=== PATIENT | female | born 1965 | race Caucasian/White ===

== ENCOUNTER 2021-06-13 10:43 | Outpatient (CLI) | payer MEDICAID, SELFPAY ==
--- NOTE | 2021-06-13 10:56 | USCV_ITS ---
Sharri Jefferson Age: 56 Gender: F : 1965 Exam Date: 06/13/2021 11:07 Ordering Phys: Jen Rodriguez WELDER Technologist: Manpreet Babcock [place] [facility] [place]: PAIN AND SWELLING PROCEDURES: Venous duplex imaging was performed in only the left lower extremity. The following venous structures were evaluated: common femoral vein, profunda vein, proximal portion of the greater saphenous vein, superficial femoral vein, and the popliteal vein. In addition, the posterior tibial and peroneal trunk were evaluated. Serial compression, augmentation maneuvers, and spectral Doppler flow evaluation were performed. FINDINGS: Normal 2-D Doppler and augmentation and compressibility throughout the lower extremity venous structures. Additional imaging through the proximal calf veins also reveals no thrombus. Limited evaluation of the greater saphenous vein is patent with no thrombus. Left inferomedial knee there is a superficial hyperechoic area noted without bloodflow. Likely a small lipoma measuring 1.0 cm. CONCLUSIONS No DVT left lower extremity. Dr. Aliyah Estes DO (Electronically Signed) Final Date: 13 June 2021 12:48 S
== END 2021-06-13 10:44 | disposition home or self-care (01) ==
LOC: RAD 10:48
PROVIDERS: PCP Nurse Practitioner Family; Visit Provider Nurse Practitioner Family
DX: M79.662 Pain in left lower leg (principal); M79.89 Other specified soft tissue disorders
CPT/HCPCS: 93971

== ENCOUNTER 2022-06-16 10:24 | Outpatient (CLI) | payer MEDICAID, SELFPAY ==
--- NOTE | 2022-06-16 10:42 | XR_ITS ---
WS: [id number] Left ankle, 3 views, 06/16/2022 Clinical Data: PAIN IN LEFT ANKLE JOINTS OF LEFT FOOT Comparison: Left ankle, 02/23/2006. Findings: No fractures or dislocations are seen. The ankle mortise is normal. The talus and calcaneus are unrem arkable. No soft tissue swelling over the medial or lateral malleolus is seen. There is an Achilles spur and a plantar spur. XR/XR ankle LT min 3V* [id number] Impression: Negative left ankle.
== END 2022-06-16 10:25 | disposition home or self-care (01) ==
PROVIDERS: PCP Nurse Practitioner Family; Visit Provider Nurse Practitioner Family
DX: M25.572 Pain in left ankle and joints of left foot; S86.002A Unspecified injury of left Achilles tendon, initial encounter; X58.XXXA Exposure to other specified factors, initial encounter
CPT/HCPCS: 73610

== ENCOUNTER 2022-06-28 10:33 | Outpatient (CLI) | payer MEDICAID, SELFPAY | END 2022-06-28 10:34 | disposition home or self-care (01) | LOC: SPT 10:33 | PROVIDERS: PCP Nurse Practitioner Family; Visit Provider Podiatrist Foot & Ankle Surgery | DX: Z46.89 Encounter for fitting and adjustment of other specified devices (principal); M76.62 Achilles tendinitis, left leg | CPT/HCPCS: 97760; 99204; L4397 ==

== ENCOUNTER 2022-07-13 08:19 | Outpatient (CLI) | payer MEDICAID, SELFPAY ==
--- NOTE | 2022-07-13 08:28 | MR_ITS ---
WS: [email or web address] EXAMINATION: MR ankle LT wo con* [id number] ORDER DATE: 07/13/2022 8:33 AM COMPARISON: None. HISTORY: UNSPECIFIED INJURY/ACHILLES TENDON CONTRAST: None. TECHNIQUE: Axial proton density fat sat, axial T1, sagittal proton density, sagittal STIR, coronal T2 fat sat, and coronal T1 sequences performed. After contrast, axial T1 fat sat, coronal T1 fat sat, and sagittal T1 fat sat were performed. FINDINGS: Prominent plantar and Achilles calcaneal spurring unchanged from the prior radiograph. Normal medial and lateral malleolus. No avulsion fractures. Normal talar dome. No evidence of avascular necrosis. Deltoid ligament is normal in appearance. Normal ATF and PTF. Base of the 5th metatarsal is normal. N ormal cuboid. Normal cuneiforms. Normal talonavicular articulation. Mild subcutaneous edema hindfoot and midfoot. Normal plantar aponeurosis. Normal bone marrow signal in the calcaneus. Normal talar nec k. Distal Achilles is normal in appearance. No high-grade Achilles tendon tears. Mild thickening of the Achilles tendon distally with a small amount of peritendinous edema. Prominent dorsal calcaneal spurr ing/enthesophyte measuring 8 mm. Trace fluid in the retrocalcaneal bursa. Normal peroneal tendon sheath. Normal tibialis posterior. Small amount of tenosynovitis along the fle xor hallucis longus. Normal tibialis anterior. Normal extensor compartment tendons. Small ankle effus ion. MR/MR ankle LT wo con* [id number] IMPRESSION: 1. Achilles is intact. Mild thickening of the distal Achilles tendon with trac e retrocalcaneal fluid. Small amount of edema about the Achilles tendon compati ble with peritendinitis. 2. Prominent dorsal Achilles calcaneal spurring/enthesophyte measuring 8 mm. 3. Normal ankle mortise. Normal medial and lateral malleolus. No acute avulsio n fractures. 4. Normal ATF and deltoid ligament.
== END 2022-07-13 08:20 | disposition home or self-care (01) ==
PROVIDERS: PCP Nurse Practitioner Family; Visit Provider Nurse Practitioner Family
DX: S86.002A Unspecified injury of left Achilles tendon, initial encounter (principal); X58.XXXA Exposure to other specified factors, initial encounter
CPT/HCPCS: 73721

== ENCOUNTER → 2022-07-18 12:54 | Outpatient (BNVA) | payer MEDICAID, SELFPAY | PROVIDERS: PCP Nurse Practitioner Family; Visit Provider Podiatrist Foot & Ankle Surgery | DX: M76.62 Achilles tendinitis, left leg (principal); M77.32 Calcaneal spur, left foot; M19.072 Primary osteoarthritis, left ankle and foot | CPT/HCPCS: 99213 ==

== ENCOUNTER → 2022-07-28 08:29 | Outpatient (BNVA) | payer MEDICAID, SELFPAY | PROVIDERS: PCP Nurse Practitioner Family; Visit Provider Podiatrist Foot & Ankle Surgery | DX: M76.62 Achilles tendinitis, left leg (principal); M77.32 Calcaneal spur, left foot; M19.072 Primary osteoarthritis, left ankle and foot | CPT/HCPCS: 99213 ==

== ENCOUNTER 2022-08-31 09:51 | Outpatient (CLI) | payer MEDICAID, SELFPAY ==
--- NOTE | 2022-08-31 10:05 | XR_ITS ---
WS: [id number] Right knee, AP and lateral views, 08/31/2022 Clinical Data: PAIN IN RIGHT KNEE Comparison: AP both knees, 08/29/2018 Findings: No fractures or dislocations are seen. The joint spaces are normal. The patella is intact. The soft t issues are unremarkable. XR/XR knee RT 1-2V [id number] Impression: Negative right knee. Kellgren-Nas Classification: grade 0 (none): definite absence of x-ray nava nges of osteoarthritis
== END 2022-08-31 09:52 | disposition home or self-care (01) ==
LOC: RAD 09:54
PROVIDERS: PCP Nurse Practitioner Family; Visit Provider Nurse Practitioner Family
DX: M25.561 Pain in right knee (principal)
CPT/HCPCS: 73560

== ENCOUNTER 2022-11-16 14:25 | Outpatient (CLI) | payer MEDICAID, SELFPAY ==
--- NOTE | 2022-11-16 14:34 | US_ITS ---
WS: [id number] ULTRASOUND SOFT TISSUES posterior RIGHT knee. HISTORY: PAIN IN RIGHT KNEE COMPARISON: None available. TECHNIQUE: 2-D and color Doppler imaging is submitted. No soft tissue abnormalities are identified posterior to the RIGHT knee. No fluid collection or Lemon 's cyst. US/US soft tissue/extremity [id number] IMPRESSION: No soft tissue abnormality posterior to the RIGHT knee. For further evaluation consider MRI.
== END 2022-11-16 14:26 | disposition home or self-care (01) ==
PROVIDERS: PCP Nurse Practitioner Family; Visit Provider Nurse Practitioner Family
DX: M25.561 Pain in right knee (principal)
CPT/HCPCS: 76882

== ENCOUNTER → 2023-03-27 10:10 | Outpatient (BNVA) | payer MEDICAID, SELFPAY | PROVIDERS: PCP Nurse Practitioner Family; Visit Provider Podiatrist Foot & Ankle Surgery | DX: M76.62 Achilles tendinitis, left leg; M77.32 Calcaneal spur, left foot; M19.072 Primary osteoarthritis, left ankle and foot | CPT/HCPCS: 99213 ==

== ENCOUNTER 2023-04-04 08:22 | Outpatient (CLI) | payer MEDICAID, SELFPAY ==
--- NOTE | 2023-04-04 08:28 | MR_ITS ---
WS: [id number] MRI RIGHT KNEE NONCONTRAST TECHNIQUE: Axial PD, coronal PD fat sat, coronal PD, sagittal PD, and sagittal PD fat-sat images obta ined. CLINICAL INFORMATION: PAIN IN R KNEE/INTERNAL DERANGEMENT OF R KNEE COMPARISON: None. FINDINGS: Distal quadriceps and patella tendons are intact. Small suprasellar effusion. Lobulated popliteal cys t measuring 2.6 x 1.6 x 5.5 cm AP by transverse by craniocaudal. Normal ACL and PCL. Hypertrophic nava nge along the joint line. Normal lateral meniscus. Tear involving the posterior horn medial meniscus extending to the meniscal root. Peripheral extrusion of the medial meniscus. Normal lateral collatera l ligament. Small amount of fluid and edema along the medial collateral ligament. Moderate tricompart ment arthritis. Moderate chondromalacia patella. Small amount of prepatellar soft tissue edema. IMPRESSION: 1. Normal ACL and PCL. 2. Small suprapatellar effusion. 3. Moderate chondromalacia patella. Small suprapatellar effusion. 4. Lobulated popliteal cyst described above. 5. Tear involving the posterior horn medial meniscus extending to the meniscal root. Peripheral extr usion of the medial meniscus. 6. Small amount of fluid and edema along the medial collateral ligament consistent with grade 1 inju ry. Outbridge grading: grade III: partial-thickness cartilage loss with focal ulceration
== END 2023-04-04 08:23 | disposition home or self-care (01) ==
LOC: RAD 08:22
PROVIDERS: PCP Nurse Practitioner Family; Visit Provider Nurse Practitioner Family
DX: M25.561 Pain in right knee (principal); M23.91 Unspecified internal derangement of right knee
CPT/HCPCS: 73721

== ENCOUNTER → 2023-04-19 13:16 | Outpatient (BNVA) | payer MEDICAID, SELFPAY | PROVIDERS: PCP Nurse Practitioner Family; Visit Provider Nurse Practitioner | DX: M23.321 Other meniscus derangements, posterior horn of medial meniscus, right knee (principal); M22.41 Chondromalacia patellae, right knee; M71.21 Synovial cyst of popliteal space [Baker], right knee | CPT/HCPCS: 99204 ==

== ENCOUNTER → 2023-05-01 09:37 | Outpatient (BNVA) | payer MEDICAID, SELFPAY | PROVIDERS: PCP Nurse Practitioner Family; Visit Provider Nurse Practitioner | DX: M23.304 Other meniscus derangements, unspecified medial meniscus, left knee; M23.321 Other meniscus derangements, posterior horn of medial meniscus, right knee; M22.41 Chondromalacia patellae, right knee; M71.21 Synovial cyst of popliteal space [Baker], right knee; Z01.818 Encounter for other preprocedural examination | CPT/HCPCS: 36415; 73560; 73565; 80053; 81001; 85025; 99214 ==

== ENCOUNTER → 2024-05-28 15:55 | Outpatient (BNVA) | payer MEDICAID, SELFPAY | PROVIDERS: PCP Nurse Practitioner Family; Visit Provider Podiatrist Foot & Ankle Surgery | DX: S99.919A Unspecified injury of unspecified ankle, initial encounter (principal); W10.8XXA Fall (on) (from) other stairs and steps, initial encounter; M76.62 Achilles tendinitis, left leg; M77.32 Calcaneal spur, left foot; M19.072 Primary osteoarthritis, left ankle and foot | CPT/HCPCS: 99213 ==

== ENCOUNTER → 2024-06-12 16:23 | Outpatient (BNVA) | payer MEDICAID, SELFPAY | PROVIDERS: PCP Nurse Practitioner Family; Visit Provider Podiatrist Foot & Ankle Surgery | DX: M25.571 Pain in right ankle and joints of right foot (principal); S99.911A Unspecified injury of right ankle, initial encounter; W10.8XXA Fall (on) (from) other stairs and steps, initial encounter; M76.62 Achilles tendinitis, left leg; M77.30 Calcaneal spur, unspecified foot; M19.071 Primary osteoarthritis, right ankle and foot | CPT/HCPCS: 73610; 99213 ==

== ENCOUNTER → 2024-06-26 16:24 | Outpatient (BNVA) | payer MEDICAID, SELFPAY | PROVIDERS: PCP Nurse Practitioner Family; Visit Provider Podiatrist Foot & Ankle Surgery | DX: S92.901A Unspecified fracture of right foot, initial encounter for closed fracture (principal); M79.671 Pain in right foot; X58.XXXA Exposure to other specified factors, initial encounter; M76.62 Achilles tendinitis, left leg; M77.31 Calcaneal spur, right foot; M19.071 Primary osteoarthritis, right ankle and foot | CPT/HCPCS: 73630; 99213 ==

== ENCOUNTER → 2024-07-10 16:03 | Outpatient (BNVA) | payer MEDICAID, SELFPAY | PROVIDERS: PCP Nurse Practitioner Family; Visit Provider Podiatrist Foot & Ankle Surgery | DX: S92.351D Displaced fracture of fifth metatarsal bone, right foot, subsequent encounter for fracture with routine healing (principal); X58.XXXD Exposure to other specified factors, subsequent encounter | CPT/HCPCS: 73630; 99213 ==

== ENCOUNTER → 2024-07-24 14:38 | Outpatient (BNVA) | payer MEDICAID, SELFPAY | PROVIDERS: PCP Nurse Practitioner Family; Visit Provider Podiatrist Foot & Ankle Surgery | DX: S92.351D Displaced fracture of fifth metatarsal bone, right foot, subsequent encounter for fracture with routine healing (principal); M79.671 Pain in right foot; X58.XXXD Exposure to other specified factors, subsequent encounter | CPT/HCPCS: 73630; 99213 ==

== ENCOUNTER → 2024-08-21 16:24 | Outpatient (BNVA) | payer MEDICAID, SELFPAY | PROVIDERS: PCP Nurse Practitioner Family; Visit Provider Podiatrist Foot & Ankle Surgery | DX: M79.671 Pain in right foot (principal); S92.351D Displaced fracture of fifth metatarsal bone, right foot, subsequent encounter for fracture with routine healing; X58.XXXD Exposure to other specified factors, subsequent encounter | CPT/HCPCS: 73630; 99213 ==

== ENCOUNTER 2024-08-29 13:40 | Outpatient (CLI) | payer MEDICAID, SELFPAY ==
--- NOTE | 2024-08-29 15:15 | MRR_ITS ---
PROCEDURE INFORMATION: Exam: MR Right Lower Extremity Other Than Joint Without Contrast; Foot Exam date and time: 08/29/2024 3:48 PM Age: 59 years old Clinical indication: Condition or disease; Other: Fracture of base of right fifth metatarsal. ; Additional info: Delayed healing, increased pain and swelling TECHNIQUE: Imaging protocol: Magnetic resonance imaging of the right lower extremity without contrast. Exam focused on the foot. COMPARISON: CR XR foot RT min 3V* [id number] 08/21/2024 4:33 PM FINDINGS: Bones/joints: There is a nondisplaced fracture versus accessory ossification center at the base of the 5th metatarsal which demonstrates no significant bone marrow edema or surrounding edema. Alignment is normal. No joint effusions. There is mild patchy bone marrow edema involving the talus, navicular, calcaneus and cuboid. No significant joint effusions. LIGAMENTS: Lisfranc ligament: Lisfranc ligament is intact. TENDONS: Flexor tendons of foot: Unremarkable. No evidence of tear. Tibialis posterior tendon: Unremarkable as visualized. Peroneal tendons: Unremarkable as visualized. Extensor tendons of foot: Unremarkable. No evidence of tear. Tibialis anterior tendon: Unremarkable as visualized. Achilles tendon: Achilles tendon is normal. Tarsal canal (Sinus tarsi): Unremarkable. Tarsal tunnel: Unremarkable. Soft tissues: There is a 4.1 x 1.3 cm lipoma in the superficial medial hindfoot. Mild soft tissue edema in the dorsal lateral aspect of the foot and surrounding the ankle. Plantar fascia: Plantar fascia is normal. MR/MR foot RT wo con* [id number] IMPRESSION: 1. Ununited fracture or accessory ossification center at the base of the 5th metatarsal. No significant bone marrow edema in the 5th metatarsal or adjacent soft tissues. 2. Patchy bone marrow edema in the hindfoot. No visible fracture. Possible bone contusions, stress reaction or stress fractures, complex regional pain syndrome, or transient marrow edema syndrome.
--- NOTE | 2024-08-29 16:00 | MRR_ITS ---
PROCEDURE INFORMATION: Exam: MR Right Lower Extremity Joint Without Contrast; Ankle Exam date and time: 08/29/2024 3:28 PM Age: 59 years old Clinical indication: Pain; Ankle; Fracture of base of right fifth metatarsal. Type or date of injury not specified; Additional info: Increased pain and swelling since the accident TECHNIQUE: Imaging protocol: Magnetic resonance imaging of the right lower extremity without contrast. Exam focused on the ankle. COMPARISON: CR XR ankle RT min 3V* [id number] 06/12/2024 4:31 PM FINDINGS: Bones/joints: Mild heterogeneous bone marrow signal intensity with patchy mild bone marrow edema in the distal talus, calcaneus, cuboid and navicular. No visible fracture line. Joint alignment is normal. No joint effusions. LIGAMENTS: Distal tibiofibular syndesmosis: Unremarkable. No tear. Anterior talofibular ligament: Unremarkable. No tear. Posterior talofibular ligament: Unremarkable. No tear. Calcaneofibular ligament: Unremarkable. No tear. Deltoid ligament complex: Unremarkable. No tear. TENDONS: Flexor tendons of foot: Unremarkable as visualized. Tibialis posterior tendon: Unremarkable as visualized. Peroneal tendons: Unremarkable as visualized. Extensor tendons of foot: Unremarkable as visualized. Tibialis anterior tendon: Unremarkable as visualized. Achilles tendon: Achilles tendon is normal. Tarsal canal (Sinus tarsi): Tarsal sinus is normal. Tarsal tunnel: Tarsal tunnel is normal. Soft tissues: Mild subcutaneous edema at the ankle. Mild subcutaneous edema at the ankle. There is a 4.4 x 1.5 x 1.5 cm lipoma in the superficial medial hindfoot. Plantar fascia: Plantar fascia is normal. MR/MR ankle RT wo con* [id number] IMPRESSION: Patchy bone marrow edema in the hindfoot. No visible fracture. Possible bone contusions, stress reaction or stress fractures, complex regional pain syndrome, or transient marrow edema syndrome.
--- NOTE | 2024-08-29 16:19 | XRR_ITS ---
PROCEDURE INFORMATION: Exam: XR Right Foot Exam date and time: 08/29/2024 4:23 PM Age: 59 years old Clinical indication: Pain; Foot; Right; Additional info: S92.351d - displaced fracture of fifth metatarsal bone, R. . . TECHNIQUE: Imaging protocol: Radiologic exam of the right foot. Views: 3 or more views. COMPARISON: MR foot RT wo con* [id number] 08/29/2024 3:48 PM FINDINGS: Bones/joints: Acute fracture of proximal 5th metatarsal without significant displacement. No additional acute displaced fractures visualized. Calcaneal spur is present. Soft tissues: Soft tissue edema. XR/XR foot RT min 3V* [id number] IMPRESSION: Proximal 5th metatarsal fracture without significant displacement.
== END 2024-08-29 13:41 | disposition home or self-care (01) ==
PROVIDERS: PCP Nurse Practitioner Family; Visit Provider Podiatrist Foot & Ankle Surgery
DX: S92.354A Nondisplaced fracture of fifth metatarsal bone, right foot, initial encounter for closed fracture (principal); X58.XXXA Exposure to other specified factors, initial encounter; M77.31 Calcaneal spur, right foot; R93.6 Abnormal findings on diagnostic imaging of limbs; M79.89 Other specified soft tissue disorders
CPT/HCPCS: 73630; 73718; 73721

== ENCOUNTER → 2024-11-18 15:32 | Outpatient (BNVA) | payer MEDICAID, SELFPAY | PROVIDERS: PCP Nurse Practitioner Family; Visit Provider Podiatrist Foot & Ankle Surgery | DX: M79.671 Pain in right foot (principal); S92.351D Displaced fracture of fifth metatarsal bone, right foot, subsequent encounter for fracture with routine healing; X58.XXXD Exposure to other specified factors, subsequent encounter | CPT/HCPCS: 73630; 99213 ==

== ENCOUNTER → 2025-04-06 15:15 | Outpatient (BNVA) | payer MEDICAID, SELFPAY | PROVIDERS: PCP Nurse Practitioner Family; Visit Provider Nurse Practitioner | DX: M65.311 Trigger thumb, right thumb (principal); R20.2 Paresthesia of skin | CPT/HCPCS: 73130; 99204; 99214 ==